=== PATIENT | female | born 1985 | race Asian ===

== ENCOUNTER 2019-02-01 20:34 | Emergency (ER) | payer OTHER ==
[~2019-02-01] VITALS: Ht 147.3 cm; Wt 47.7 kg
[2019-02-01] MEDS ORDERED: KETOROLAC TROMETHAMINE 60 MG/2 ML VIAL IM ONE (21:30)
[2019-02-01 22:00] VITALS: BP 123/77
== END 2019-02-01 22:45 | disposition home or self-care (01) ==
LOC: EMS 20:36
DX: S29.012A Strain of muscle and tendon of back wall of thorax, initial encounter (principal); X50.0XXA Overexertion from strenuous movement or load, initial encounter; Y93.89 Activity, other specified; Y92.69 Other specified industrial and construction area as the place of occurrence of the external cause; Y99.8 Other external cause status
CPT/HCPCS: 96372; 99283; J1885